=== PATIENT | female | born 1965 | race Caucasian/White ===

== ENCOUNTER 2019-05-13 08:30 | Day surgery (SDC) | payer OTHER ==
[~2019-05-13] VITALS: Ht 160 cm; Wt 56.7 kg
[~2019-05-13 08:30] MED LIST: WOMEN'S DAILY1 EAC2 PO
--- NOTE | 2019-05-13 12:02 | NUR ---
05/13/19 1202 [address] 1151 PT ARRIVED IN PACU NON RESPONSIVE TO NOXIOUS STIMULI WITH OPA IN PLACE.
--- NOTE | 2019-05-13 12:24 | NUR ---
ICED WATER GIVEN. SPOUSE AT THE BEDSIDE. CALL LIGHT WITHIN REACH.
[2019-05-13] MEDS ORDERED: MOTRIN IB200 MG PO (13:06)
[2019-05-13] MEDS ORDERED: NORCO 5-325 TA1 EACH PO (13:06)
--- NOTE | 2019-05-13 19:30 | OR ---
[facility] [place] [facility] [address], [place] [address] Signed DATE OF OPERATION: 05/13/2019 SURGEON: Kay Delatorre MD PREOPERATIVE DIAGNOSES: Postmenopausal bleeding and endometrial polyps. POSTOPERATIVE DIAGNOSES: Postmenopausal bleeding and endometrial polyps. PROCEDURES: Hysteroscopy and resection of polyps. ANESTHESIA: General LMA. ESTIMATED BLOOD LOSS: Minimal. DRAINS: None. INDICATIONS AND FINDINGS: The patient is a 53-year-old female who has had some recent abnormal postmenopausal bleeding. She is not on hormone therapy. Ultrasound revealed probable endometrial polyps with a thickened and irregular endometrium. At the time of surgery, exam under anesthesia was normal other than a 1 cm firm nodule just to the left of her clitoral portillo, which has been present for quite some time. The uterus itself felt normal in size and regular in contour. No adnexal masses were appreciated. The cavity sounded to 8 cm. The cavity was atrophic with several small polyps. DESCRIPTION OF PROCEDURE: The patient was prepped and draped in the dorsal lithotomy position. A weighted speculum was placed and the anterior lip of the cervix was visualized and grasped with a single-tooth tenaculum. The cavity sounded to 8 cm. The endocervical canal was then dilated to a #8 dilator. The MyoSure device was placed and the cavity evaluated. Multiple polyps were seen. The MyoSure device was removed and stone forceps were introduced and several small polyps were removed. MyoSure device was replaced and there still appeared to be a lower anterior fundal polyp and the MyoSure Lite was placed and this was resected completely. The cavity was otherwise completely atrophic. The Electronically Signed By: KAY DELATORRE MD 05/13/19 1930 PATIENT NAME: JOHNNA NOONAN OPERATIVE REPORT DATE OF : 67 REPORT #: [id number] PHYSICIAN: KAY DELATORRE MD PCP: ELLIE VALLE MD REPORT IS CONFIDENTIAL AND NOT TO BE RELEASED WITHOUT AUTHORIZATION [facility] [address] [facility] [place], [place] [address] Signed procedure was then terminated. The instruments were removed. There was some bleeding from the right hand tenaculum site, which responded to pressure. The procedure was then terminated. The patient was taken to the recovery room in good condition. Kay Delatorre MD PJW/MODL /[id number] cc: Ellie Valle MD Copies: ELLIE VALLE MD ~ Electronically Signed By: KAY DELATORRE MD 05/13/19 1930 PATIENT NAME: JOHNNA NOONAN OPERATIVE REPORT DATE OF : 67 REPORT #: [id number] PHYSICIAN: KAY DELATORRE MD PCP: ELLIE VALLE MD REPORT IS CONFIDENTIAL AND NOT TO BE RELEASED WITHOUT AUTHORIZATION
== END 2019-05-13 13:35 | disposition home or self-care (01) ==
LOC: DS 08:30
PROVIDERS: Obstetrics & Gynecology
PROC: 0UB98ZZ Excision of Uterus, Via Natural or Artificial Opening Endoscopic (ICD-10-PCS; principal; 2019-05-13 11:45)
DX: N84.0 Polyp of corpus uteri (principal); N94.11 Superficial (introital) dyspareunia; N95.2 Postmenopausal atrophic vaginitis; K59.00 Constipation, unspecified; R33.9 Retention of urine, unspecified; Z79.899 Other long term (current) drug therapy
CPT/HCPCS: 00952; J1100; J1885; J2405; J2704; J2765; J3010; J7121